=== PATIENT | male | born 1985 | race Two or more races ===

== ENCOUNTER 2020-10-01 02:26 | Emergency (ER) | payer OTHER ==
[~2020-10-01] VITALS: Ht 172.7 cm; Wt 89.1 kg
[2020-10-01] MEDS ORDERED: LIDOCAINE/EPI/TETRACAINE TOPICAL GEL 3 ML. TP ONE ×2 (02:46→04:00)
--- NOTE | 2020-10-01 02:48 | PHYS DOC ---
Adult General HPI HPI Patient is a 35-year-old prisoner who presents to the emergency department with injury to right middle finger. States he was working out and had the weight smashed his finger. States he is up-to-date on his tetanus vaccination. States that his pain is 5 out of 10, sharp in nature. Denies any other injuries. Review of Systems Review of Systems Review of systems otherwise unremarkable except noted in HPI Physical Exam Physical Exam Constitutional: Well developed, well nourished, no acute distress, non-toxic appearance. [] HENT: Normocephalic, atraumatic, bilateral external ears normal, oropharynx moist, no oral exudates, nose normal. [] Cardiovascular:Heart rate regular rhythm, no murmur [] Lungs & Thorax: Bilateral breath sounds clear to auscultation [] Extremities: Patient has a 1 cm linear laceration at the anterior tip of his third right digit, hemostasis achieved, neurovascular exam intact, range of motion intact Neurologic: Alert and oriented X 3, normal motor function, normal sensory function, no focal deficits noted. [] EKG EKG [] Radiology/Procedures Radiology/Procedures Wound cleaned with sterile water. L ET placed for topical anesthesia. Anesthesia achieved. 5 sutures placed of 5-0 nylon. Wound cleaned again with sterile water. Bandaged. [] Heart Score C/O Chest Pain: No Risk Factors: Risk Factors: DM, Current or recent (<one month) smoker, HTN, HLP, family histo ry of CAD, obesity. Risk Scores: Risk Factors: DM, Current or recent (<one month) smoker, HTN, HLP, family history of CAD, obesity. Course & Med Decision Making Course & Med Decision Making Patient is a 35-year-old prisoner who presents with right third digit injury after injuring it while lifting weights Vital signs not concerning. Physical exam noted above. Patient up-to-date on tetanus. L ET placed for topical anesthesia. Given Tylenol and ibuprofen. Imaging notable for tuft fracture/distal phalanx fracture. Repaired with suture. Placed in finger splint. Patient started on antibiotics in the emergency department. Discussed all findings with patient and guards. Advised to follow-up first thing tomorrow with facility physician to discuss diagnoses of laceration and tuft fracture. Advised to be sure to take his antibiotics every day until they are gone. Gave strict return precautions to the emergency department advised to have a wound check and possible suture removal in 5 days. [] Dragon Disclaimer Dragon Disclaimer This electronic medical record was generated, in whole or in part, using a voice recognition dictation system. Departure Departure: Impression: Primary Impression: Finger laceration Disposition: HOME / SELF CARE / HOMELESS Condition: GOOD Referrals: PCP,NO (PCP) Patient Instructions: Finger Fracture (Phalangeal)-Sports[facility], Fingertip Laceration Additional Instructions: Please read all the attached information very carefully. Please take your antibiotics as prescribed. You can use Tylenol, ibuprofen and ice as needed for pain control. Please follow-up with your primary care physician soon as you can to discuss your tuft fracture and laceration and to set up a follow-up appointment in 5 to 7 days for a wound check and suture removal. Please come back to the emergency department immediately with new or concerning symptoms as discussed. Scripts Cephalexin (CEPHALEXIN) 500 Mg Capsule 1 CAP PO TID for laceration for 5 Days, #15 CAP Prov: BRODERICK GARCIA MD 10/01/20 BRODERICK GARCIA MD October 01, 2020 02:48
[2020-10-01] MEDS ORDERED: CEPH500C PO (02:52)
[2020-10-01 03:36] VITALS: BP 106/60
[2020-10-01] MEDS ORDERED: CEPHALEXIN 250 MG CAPSULE PO ONE (04:00)
[2020-10-01] MEDS ORDERED: IBUPROFEN 600 MG TABLET. PO ONE (04:00)
[2020-10-01] MEDS ORDERED: ACETAMINOPHEN 500 MG TABLET PO ONE (04:00)
--- NOTE | 2020-10-01 04:45 | RAD ---
INDICATION: Reason: 3rd digit injury, DISTAL / Spl. Instructions: / History: COMPARISON: None. IMPRESSION: Head: 2 views obtained. There is a displaced fracture of the tuft of the third distal phalanx. Small amount high density is seen projecting over the soft tissues which could be debris on the skin surfac e with foreign body also in differential. Electronically signed by: Mal Marc MD (10/01/2020 4:42 AM) [id number]
== END 2020-10-01 03:40 | disposition home or self-care (01) ==
LOC: ER 02:26 → EEVIPCON 02:26 → ER 03:40
DX: S62.632A Displaced fracture of distal phalanx of right middle finger, initial encounter for closed fracture (principal); S61.212A Laceration without foreign body of right middle finger without damage to nail, initial encounter; W22.8XXA Striking against or struck by other objects, initial encounter; Y93.89 Activity, other specified; Y92.89 Other specified places as the place of occurrence of the external cause; Y99.8 Other external cause status
CPT/HCPCS: 12001; 29130; 73120; 99284-25